=== PATIENT | female | born 1960 | race Caucasian/White ===

== ENCOUNTER 2020-10-28 12:06 | Emergency (ER) | payer OTHER ==
[2020-10-28] MEDS ORDERED: CEFTRIAXONE SODIUM 1 GM ONE (12:32)
[2020-10-28] MEDS ORDERED: LIDOCAINE HCL-MPF 1% 2ML VIAL ONE (12:32)
[2020-10-28] MEDS ORDERED: PHENAZOPYRIDINE HCL 200 MG TABLET ONE (12:33)
[2020-10-28 12:57] LABS: APPEARANCE,URINE Clear (CLEAR); BILIRUBIN,URINE Negative (NEGATIVE); COLOR,URINE Yellow (YELLOW); GLUCOSE, URINE (UA) Negative (NEGATIVE); KETONES,URINE Negative (NEGATIVE); LEUKOCYTE ESTERASE ,URINE Trace (NEGATIVE); NITRATE,URINE Negative (NEGATIVE); OCCULT BLOOD,URINE Negative (NEGATIVE); PROTEIN,URINE Negative (NEGATIVE); UROBILINOGEN,URINE 0.2 mg/dL (0.2-1.0)
[2020-10-28 13:12] LABS: BACTERIA,URINE None Seen /HPF (None Seen); RBC,URINE None Seen /HPF (0-1); SQUAMOUS EPITHELIAL CELL,UR 0-2 /HPF (0-2); WBC,URINE 0-1 /HPF (0-1)
== END 2020-10-28 13:14 | disposition home or self-care (01) ==
LOC: EDH 12:06
DX: R30.0 Dysuria (principal); R35.0 Frequency of micturition; I10 Essential (primary) hypertension
CPT/HCPCS: 81001; 96372; 99283; J0696; J3490